=== PATIENT | female | born 1955 | race Caucasian/White ===

== ENCOUNTER → 2017-10-13 | Emergency (ER) | payer OTHER ==
[~2017-10-13] VITALS: Ht 157.5 cm; Wt 63.5 kg
[~2017-10-13] MED LIST: HYDROCODONE/APAP 5/325MG 1 EACH TABLET PO ONE; ONDANSETRON 4 MG TAB.RAPDIS SL ONE
--- NOTE | 2017-10-13 19:26 | NUR ---
PT BIB FAMILY FROM HOME S/P GLF. PT PLACED IN ER BED 4. C/O RIGHT LOWER LEG PAIN FOCUSED AT THE ANKLE. PT STATES SHE FELL AT THE LAST STEP OF THE STAIRS WHILE COMING DOWN AND COULDN'T GET UP OR PLACE WEIGHT ON THE RIGHT LEG. EXPRESSES 6/10 PAIN AT RIGHT ANKLE. VITALS WNL. ON ROOM AIR. NO COMPLAINTS OF DIZZINESS, N/V.
--- NOTE | 2017-10-13 19:38 | NUR ---
BUILDING [employer] AT BEDSIDE FOR XR OF RIGHT ANKLE.
[2017-10-13 21:17] VITALS: BP 120/71
== END | disposition home or self-care (01) ==
LOC: ER 19:12
DX: M25.571 Pain in right ankle and joints of right foot (principal); W18.39XA Other fall on same level, initial encounter; Y93.89 Activity, other specified; Y92.89 Other specified places as the place of occurrence of the external cause; Y99.8 Other external cause status
CPT/HCPCS: 73610; 99284; A4606; Z7610

== ENCOUNTER 2022-07-23 13:28 | Emergency (ER) | payer OTHER ==
[~2022-07-23] VITALS: Ht 160 cm; Wt 77.1 kg
--- NOTE | 2022-07-23 14:00 | NUR ---
BIBS C/O cough with congestion "I can't hear well on both ears". AMBULATORY, PLACED ON BED, BREATHING EVEN AND UNLABORED.
--- NOTE | 2022-07-23 14:38 | NUR ---
AT BED SIDE
[2022-07-23] MEDS ORDERED: FLUT9.9S NS (14:43)
--- NOTE | 2022-07-23 14:51 | NUR ---
SWAB FOR COVID19 SENT TO LAB
--- NOTE | 2022-07-23 16:50 | NUR ---
Patient discharged to home in stable condition. Written and verbal after care instructions given. Patient verbalizes understanding of instruction.
[2022-07-23 16:53] VITALS: BP 115/70
== END 2022-07-23 16:50 | disposition home or self-care (01) ==
LOC: ER 13:30
DX: H74.92 Unspecified disorder of left middle ear and mastoid (principal); Z20.822 Contact with and (suspected) exposure to COVID-19; R68.89 Other general symptoms and signs
CPT/HCPCS: 99283; 87426; C9803

== ENCOUNTER 2024-07-21 18:06 | Emergency (ER) | payer OTHER ==
[~2024-07-21] VITALS: Ht 165.1 cm; Wt 80.7 kg
[~2024-07-21 18:06] MED LIST changes: +FLUT9.9S NS; -HYDROCODONE/APAP 5/325MG 1 EACH TABLET PO ONE; -ONDANSETRON 4 MG TAB.RAPDIS SL ONE
[2024-07-21 18:28] VITALS: TEMP 98.7
--- NOTE | 2024-07-21 18:30 | NUR ---
AWAITING MD CAICEDO AT THIS TIME
--- NOTE | 2024-07-21 22:04 | NUR ---
Patient discharged to home in stable condition. Written and verbal after care instructions given. Patient verbalizes understanding of instruction.
[2024-07-21 22:14] VITALS: BP 129/75; O2SAT 98
== END 2024-07-21 22:14 | disposition home or self-care (01) ==
LOC: ER 18:09
DX: M25.572 Pain in left ankle and joints of left foot (principal); Z79.899 Other long term (current) drug therapy
CPT/HCPCS: 73564-TC; 73610-TC; 73630-TC